=== PATIENT | male | born 1985 | race Caucasian/White ===

== ENCOUNTER 2016-12-10 10:15 | Emergency (ER) | payer OTHER ==
[~2016-12-10] VITALS: Ht 172.7 cm; Wt 68.0 kg
[~2016-12-10 10:15] MED LIST: AMOXICILLIN500 MG PO; AUGMENTIN 875 M1 TAB PO; BACTRIM DS 8001 TAB PO; MOBIC15 MG PO; NAPROSYN500 M1 PO; OXYCODONE5 M1 PO; PEN-VK500 MG PO; PERCOCET 325 MG1 TA2 PO; ROBAXIN-750750 M1 PO; ULTRAM50 M1 PO
[2016-12-10 10:23] VITALS: BP 118/74
[2016-12-10] MEDS ORDERED: PERCOCET 5-3251 EACH PO (10:47)
[2016-12-10] MEDS ORDERED: AMOXICILLIN500 M3 PO (10:47)
--- NOTE | 2016-12-10 10:47 | ED THROAT/DENTAL COMPLAINT ---
History of Present Illness General Chief Complaint: Sore Throat, Dental Pain Stated Complaint: DENTAL PAIN Source: patient Exam Limitations: no limitations Vital Signs & Intake/Output Vital Signs & Intake/Output Vital Signs Date Time Temp Pulse Resp B/P Pulse O2 O2 Flow FiO2 Ox Delivery Rate 12/10 1023 98.3 65 16 118/74 100 Room Air Allergies Coded Allergies: MDX - Acetaminophen (From VICODIN) (Severe, DIFF SWALLOWING, RASH 02/20/16) MDX - Hydrocodone (From VICODIN) (Severe, DIFF SWALLOWING, RASH 02/20/16) Reconcile Medications Amoxicillin 500 MG CAP 1 TAB PO TID FACIAL ABSCESS Amoxicillin 500 MG CAP 1 TAB PO TID DENTAL INFECTION Amoxicillin 500 MG TABLET 1 TAB PO TID dental infection AMOXICILLIN/POTASSIUM CLAV (Augmentin 875-125 Tablet) 875 MG/125 MG TAB 1 TAB PO BID . AMOXICILLIN/POTASSIUM CLAV (Augmentin 875-125 Tablet) 875 MG/125 MG TAB 1 TAB PO BID . Meloxicam (Mobic) 15 MG TAB 1 TAB PO DAILY PRN PAIN Methocarbamol (Robaxin-750) 750 MG TABLET 1 TAB PO TID PRN SPASM Naproxen (Naprosyn) 500 MG TABLET 1 TAB PO BID PRN PAIN OXYCODONE HCL (Oxycodone) 5 MG CAP 1-2 TAB PO Q8P PRN PAIN OXYCODONE HCL/ACETAMINOPHEN (Percocet 5-325 MG Tablet) 325 MG/5 MG TAB 1-2 TAB PO Q4-6 PRN PRN PAIN Oxycodone HCl/Acetaminophen (Percocet 5-325 MG Tablet) 5 MG-325 MG TABLET 1-2 TAB PO Q6P PRN pain OXYCODONE HCL/ACETAMINOPHEN (Percocet 5-325 MG Tablet) 325 MG/5 MG TAB 1 TAB PO Q4-6 PRN PRN PAIN OXYCODONE HCL/ACETAMINOPHEN (Percocet 5-325 MG Tablet) 325 MG/5 MG TAB 1 TAB PO Q4-6 PRN PRN BREAKTHROUGH PAIN Penicillin V Potassium (Pen-Vk) 500 MG TAB 1 TAB PO BID INFN Sulfamethoxazole/Trimethopri (Bactrim Ds 800 MG-160 MG) 1 TAB TAB 1 TAB PO BID FACIAL ABSCESS Tramadol HCl (Ultram) 50 MG TABLET 1 TAB PO Q6P PRN PAIN Triage Note: PT TO ED FOR TOOTH PAIN X 5 YEARS. Triage Nurses Notes Reviewed? yes Onset: Abrupt Duration: day(s): (5), constant, continues in ED Timing: recent history Injury Environment: home Severity: severe No Modifying Factors: none HPI: 31-year-old male comes into emergency room with complaints of severe left lower dental pain has been going on. Patient reports that the crown fell off his molar is been having increased pain. Patient has a history of previous dental problems. Pain is sharp. Continuous. Severe. Nonradiating. Denies any other associated symptoms. No fever chills vomiting. (NOLAN BUCIO) Past History Travel History Traveled to [place] past 21 day No Medical History Any Pertinent Medical History? 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 No (NOLAN BUCIO) Review of Systems Review of Systems Constitutional: Reports: no symptoms. EENTM: Reports: see HPI. Respiratory: Reports: no symptoms. Cardiovascular: Reports: no symptoms. GI: Reports: no symptoms. Genitourinary: Reports: no symptoms. Musculoskeletal: Reports: no symptoms. Skin: Reports: no symptoms. Neurological/Psychological: Reports: no symptoms. Hematologic/Endocrine: Reports: no symptoms. Immunologic/Allergic: Reports: no symptoms. All Other Systems: Reviewed and Negative (NOLAN BUCIO) Physical Exam Physical Exam General Appearance: well developed/nourished, no apparent distress, alert Head: atraumatic, normal appearance Eyes: Bilateral: normal appearance. Ears: Bilateral: other (normal inspection). Nose: normal inspection Mouth/Throat: poor dentition, broken tooth left lower molar, no visible abscess, Neck: normal inspection, lymphadenopathy (L) Cardiovascular/Respiratory: no respiratory distress Back: normal inspection Neurologic/Psych: awake, alert, oriented x 3, normal gait, normal mood/affect Skin: intact, normal color Core Measures ACS in differential dx? No Severe Sepsis Present: No Septic Shock Present: No (NOLAN BUCIO) Progress Differential Diagnosis: aspirated tooth, carious tooth, epiglottitis, Ludwigs angina, meningitis, odontogenic abscess, anita-tonsillar abscess, pharyngeal for. body, stomatitis/gingivitis, strep pharyngitis, tooth fracture Plan of Care: 12/10/2016 11:20:24 AM Patient clinically looks well. Patient is in no apparent distress. Patient is nontoxic-appearing. Patient is a poor dentition. Patient has a broken tooth. There is no visible signs of abscess. Some left-sided lymphadenopathy. Patient started on oral antibiotics and oral pain meds and referred to dentist. Return if any other concerns. Patient understands and agrees with plan of care. (NOLAN BUCIO) Departure Departure Disposition: HOME OR SELF CARE Condition: Stable Clinical Impression Primary Impression: Dental infection Referrals: PATIENT HAS NO PRIMARY CARE DR (PCP/Family) Additional Instructions: Take Percocet and amoxicillin as prescribed. Follow-up with dentist. Return if any concerns worsening symptoms. Please go over all results of today's visit with your primary care doctor. Contact your primary care doctor to let them know you were here in the emergency room. There may be nonspecific findings which may not be related to your visit today here in the emergency room but may require further evaluation and chronic monitoring by your primary care doctor. If you had a laceration today the chance of foreign body always remains. You should follow-up with your primary care doctor for recheck in 3-5 days for a wound check. If you had an x-ray done there is a chance that a fracture could have been missed on initial read and you should follow-up with your primary care doctor for repeat x-rays if symptoms persist. If your blood pressure was elevated here in the emergency room please have rechecked by her primary care doctor within the next 48 hours by your primary care doctor. If you were prescribed a narcotic here in the emergency room or any type of controlled substances you're not allowed to drive while taking this medication or operate any type of heavy machinery. Narcotics can make you feel lightheaded dizziness nausea and can cause constipation. You may need to flower picker a stool softener. Thank you for choosing [facility] emergency room. Please return to the emergency room immediately if you have any other concerns worsening of symptoms. Departure Forms: Customer Survey General Discharge Information LIST- DENTAL CLINIC LIST Prescriptions: Current Visit Scripts Oxycodone HCl/Acetaminophen (Percocet 5-325 MG Tablet) 1-2 TAB PO Q6P PRN pain #10 TAB Amoxicillin 1 TAB PO TID #30 TAB (NOLAN BUCIO) PA/TUBE OPERATOR Co-Sign Statement Statement: ED Attending supervision documentation- [] I saw and evaluated the patient. I have also reviewed all the pertinent lab results and diagnostic results. I agree with the findings and the plan of care as documented in the PA's/TUBE OPERATOR's documentation. [X] I have reviewed the ED Record and agree with the PA's/TUBE OPERATOR's documentation. [] Additions or exceptions (if any) to the PAs/TUBE OPERATOR's note and plan are summarized below: [] (XENA MAHAJAN,DEREK)
== END 2016-12-10 11:14 ==
LOC: ERH 10:15
DX: K04.7 Periapical abscess without sinus (principal)
CPT/HCPCS: 96372; J1885